=== PATIENT | female | born 1975 | race Caucasian/White ===

== ENCOUNTER 2022-09-27 22:59 | Emergency (ER) | payer MEDICAID ==
[~2022-09-27] VITALS: Ht 160 cm; Wt 47.7 kg
[2022-09-27 23:05] VITALS: BP 108/79
== END 2022-09-28 08:18 | disposition left against medical advice (07) ==
LOC: ER 23:00
DX: M54.9 Dorsalgia, unspecified (principal); Z53.21 Procedure and treatment not carried out due to patient leaving prior to being seen by health care provider

== ENCOUNTER 2024-02-15 16:29 | Emergency (ER) | payer MEDICAID ==
[~2024-02-15] VITALS: Ht 162.6 cm; Wt 50.7 kg
[2024-02-15 17:00] VITALS: BP 109/62; PULSE 106; TEMP 98; O2SAT 98
[2024-02-15] MEDS: ketorolac trometh. 30mg/ml inj. IV ONE (17:52)
[2024-02-15] MEDS ORDERED: HYDR-3965 PO (18:23)
[2024-02-15] MEDS ORDERED: DOCU-148 PO (18:23)
[2024-02-15 18:36] VITALS: RESP 18
== END 2024-02-15 18:37 | disposition home or self-care (01) ==
LOC: ER 16:30
DX: S22.089A Unspecified fracture of T11-T12 vertebra, initial encounter for closed fracture (principal); W19.XXXA Unspecified fall, initial encounter; Y93.89 Activity, other specified; Y92.89 Other specified places as the place of occurrence of the external cause; Y99.8 Other external cause status
CPT/HCPCS: 72080; 96372; 99284; J1885

== ENCOUNTER 2024-02-20 05:40 | Emergency (ER) | payer MEDICAID ==
[~2024-02-20] VITALS: Ht 162.6 cm; Wt 50.7 kg
[~2024-02-20 05:40] MED LIST: DOCU-148 PO; HYDR-3965 PO
[2024-02-20 05:43] VITALS: BP 129/83; PULSE 109; RESP 16; TEMP 98.2; O2SAT 99
== END 2024-02-20 06:53 | disposition home or self-care (01) ==
LOC: ER 05:41
DX: G89.29 Other chronic pain (principal); M54.9 Dorsalgia, unspecified
CPT/HCPCS: 99284